=== PATIENT | female | born 1960 | race Caucasian/White ===

== ENCOUNTER 2016-12-01 13:00 | Inpatient (IN) | payer OTHER ==
[~2016-12-01] VITALS: Ht 157.5 cm; Wt 62.1 kg
[~2016-12-01 13:00] MED LIST: ALLOPURINOL100 MG PO; AMLODIPINE10 M1 PO; ANT12.5 PO; APOTEX PO; ASPIR 8181 MG PO; ASPIR-LOW81 M1 PO; ASPIRIN ADULT L81 M5 PO; ATENOLO PO; ATENOLOL PO; ATENOLOL50 MG PO; ATI0.5 PO; ATI1 PO; ATIVAN0.5 M1 PO; BACLOFEN10 MG PO; BISOPROLOL FUMAR5 MG PO; CAR1 PO; CARAFATE1 GM PO; CEPACOL LOZENGE 15 M MM; CLONIDINE HCL0.1 MG PO; COL250 PO; COLACE100 MG PO; DIAZEPAM5 MG PO; DIL2 PO; DIL4 PO; DILAUDID2 MG PO; DILAUDID4 MG PO; DULCOLAX5 MG PO; ELA25 PO; ENALAPRIL MALEA10 MG PO; ENALAPRIL10 M1 PO; ENALAPRIL5 M1 PO; ENALAPRIL5 MG PO; ESG PO; FLUOXETINE HCL20 MG PO; FLUOXETINE20 M2 PO; HEP5I SC; HYDROMORPHONE HC2 MG PO; HYDROMORPHONE1 MG/ML IV; KEPPRA500 MG PO; LAC PO; LAC30L PO; LEVAQUIN250 MG PO; LIO10 PO; MELOXICAM15 M1 PO; MEVACOR40 MG PO; MOBIC PO; MORPHINE SULFAT15 MG PO; MORPHINE SULFAT30 M1 PO; MORPHINE SULFAT30 M2 PO; MS CONTIN15 MG PO; MSC15 PO; NEU300 PO; NIA500 PO; NIACIN500 MG PO; NIASPAN500 MG PO; NORCO PO; PERCOCET1 TA2 PO; PRI20 PO; PRO40 PO; PROMETHAZINE12.5 M4 PO; PROMETHAZINE12.5 M6 PO; RANITIDINE HCL150 MG PO; REG10I IV; REM15 PO; ROB500 PO; ROBAXIN500 MG PO; SOM350 PO; TEN50 PO; TOR30I IV; TRENTAL400 MG PO; TYL325 PO; ULT50 PO; V5 PO; VANCOMYCIN PER PHARMACY MC; VASOTEC20 MG PO; VITAMIN D2 1.25 MG; VITAMIN D2 PO; VOL50 PO; ZANTAC 150150 MG PO; ZES10 PO; ZOC20 PO; ZOFI IV; ZOL50 PO
[2016-12-01 15:48] LABS: BASOPHIL % 0.5 % (0-2); PLATELET COUNT 179 x10^3mcL (130-400)
[2016-12-01 15:52] LABS: RED CELL DISTRIBUTION WIDTH 15.6 % (11.5-14.5)
[2016-12-01 17:02] LABS: ALKALINE PHOSPHATASE 121 U/L (46-116); ALT/SGPT 17 U/L (14-59); AST/SGOT 21 U/L (15-37); BILIRUBIN TOTAL 0.49 mg/dL (0.20-1.00); CALCIUM 10.2 mg/dL (8.5-10.1); CARBON DIOXIDE 25.9 mmol/L (21-32); CHLORIDE SERUM 110 mmol/L (98-107); CREATININE SERUM 0.8 mg/dL (0.6-1.0); GFR1 > 60 mL/min; POTASSIUM SERUM 3.2 mmol/L (3.5-5.1); SODIUM SERUM 145 mmol/L (136-145)
[2016-12-01 17:06] LABS: GLUCOSE SERUM 57 mg/dL (74-106)
[2016-12-01 18:02] LABS: T3 TOTAL 0.98 ng/mL
[2016-12-01 18:06] LABS: FREE T4 0.87 ng/dL (0.76-1.46); FREE THYROXINE INDEX 2.7 ug/dL (1.4-4.5); T4(THYROXINE) 8.1 ug/dL (4.7-13.3)
[2016-12-01 18:18] LABS: MAGNESIUM 2.2 mg/dL (1.8-2.4); PHOSPHOROUS 3.2 mg/dL (2.5-4.9)
[2016-12-01 18:43] VITALS: BP 107/78
[2016-12-01 20:44] VITALS: BP 124/75
[2016-12-02] VITALS (7 sets, daily range): BP systolic 94–133; BP diastolic 55–97
[2016-12-02 08:03] LABS: UA SPECIFIC GRAVITY 1.015 (1.005-1.035); microscopic required? YES; urine erythrocyte NEGATIVE (NEGATIVE)
[2016-12-02 08:38] LABS: AMPHETAMINE QUAL UR NONE DETECTED (NEG <=1000)
[2016-12-02 08:47] LABS: CALCIUM 9.2 mg/dL (8.5-10.1); CARBON DIOXIDE 20.8 mmol/L (21-32); CHLORIDE SERUM 112 mmol/L (98-107); CREATININE SERUM 0.8 mg/dL (0.6-1.0); GFR1 > 60 mL/min; GLUCOSE SERUM 133 mg/dL (74-106); MAGNESIUM 1.8 mg/dL (1.8-2.4); PHOSPHOROUS 2.6 mg/dL (2.5-4.9); POTASSIUM SERUM 3.9 mmol/L (3.5-5.1); SODIUM SERUM 142 mmol/L (136-145)
[2016-12-02 09:31] LABS: BASOPHIL % 0.5 % (0-2); PLATELET COUNT 152 x10^3mcL (130-400)
[2016-12-02 09:34] LABS: RED CELL DISTRIBUTION WIDTH 15.5 % (11.5-14.5)
[2016-12-03 05:40] VITALS: BP 109/67
[2016-12-03 06:29] LABS: PLATELET COUNT 154 x10^3mcL (130-400); RED CELL DISTRIBUTION WIDTH 14.2 % (11.5-14.5)
[2016-12-03 06:35] LABS: BASOPHIL % 2.8 % (0-2)
[2016-12-03 06:42] LABS: CALCIUM 8.7 mg/dL (8.5-10.1); CARBON DIOXIDE 25.7 mmol/L (21-32); CHLORIDE SERUM 112 mmol/L (98-107); GFR1 > 60 mL/min; GLUCOSE SERUM 97 mg/dL (74-106); POTASSIUM SERUM 3.7 mmol/L (3.5-5.1); SODIUM SERUM 142 mmol/L (136-145)
[2016-12-03 09:10] VITALS: BP 115/70
[2016-12-03 13:23] VITALS: BP 115/70
[2016-12-03 14:35] VITALS: BP 86/52
== END 2016-12-03 16:50 | disposition home health service (06) | DRG 203 ==
LOC: ED 13:00 → DU 17:11
PROVIDERS: Emergency Medicine; Family Medicine; ADMIT Family Medicine
DX: M94.0 Chondrocostal junction syndrome [Tietze] (principal); E87.8 Other disorders of electrolyte and fluid balance, not elsewhere classified; D70.2 Other drug-induced agranulocytosis; E83.52 Hypercalcemia; G40.909 Epilepsy, unspecified, not intractable, without status epilepticus; E87.6 Hypokalemia; R51 Headache; G89.29 Other chronic pain; M54.9 Dorsalgia, unspecified; E16.2 Hypoglycemia, unspecified; M24.541 Contracture, right hand; M06.9 Rheumatoid arthritis, unspecified; Z87.442 Personal history of urinary calculi; Z68.25 Body mass index [BMI] 25.0-25.9, adult; T42.6X5A Adverse effect of other antiepileptic and sedative-hypnotic drugs, initial encounter; Y92.018 Other place in single-family (private) house as the place of occurrence of the external cause
CPT/HCPCS: 80307; 82962; 83880; 84439; J1885; J2405; J3010; J3490; J3535; J7030; Q0092

== ENCOUNTER 2017-01-02 15:41 | Emergency (ER) | payer OTHER ==
[~2017-01-02] VITALS: Ht 157.5 cm; Wt 59.0 kg
[2017-01-02 21:50] VITALS: BP 140/98
== END 2017-01-02 21:50 | disposition home or self-care (01) ==
LOC: ED 15:41
DX: S63.591A Other specified sprain of right wrist, initial encounter (principal); S93.401A Sprain of unspecified ligament of right ankle, initial encounter; E78.00 Pure hypercholesterolemia, unspecified; I10 Essential (primary) hypertension; G40.909 Epilepsy, unspecified, not intractable, without status epilepticus; M41.9 Scoliosis, unspecified; W19.XXXA Unspecified fall, initial encounter; Y93.89 Activity, other specified; Y92.89 Other specified places as the place of occurrence of the external cause; Y99.8 Other external cause status
CPT/HCPCS: A4570; J1170; Q0162

== ENCOUNTER 2017-01-19 17:00 | Inpatient (IN) | payer OTHER ==
[~2017-01-19] VITALS: Ht 157.5 cm; Wt 77.1 kg
[2017-01-19 18:08] LABS: BASOPHIL % 0.6 % (0-2); PLATELET COUNT 176 x10^3mcL (130-400); RED CELL DISTRIBUTION WIDTH 14.4 % (11.5-14.5)
[2017-01-19 18:28] LABS: CALCIUM 9.3 mg/dL (8.5-10.1); CARBON DIOXIDE 25.2 mmol/L (21-32); CREATININE SERUM 1.1 mg/dL (0.6-1.0); POTASSIUM SERUM 3.4 mmol/L (3.5-5.1)
[2017-01-19 18:33] LABS: BILIRUBIN TOTAL 0.4 mg/dL (0.20-1.00); TOTAL PROTEIN, SERUM 6.1 g/dL (6.4-8.2)
[2017-01-19 20:30] VITALS: BP 94/58
[2017-01-19 20:36] VITALS: Ht 157.5 cm; Wt 77.1 kg
[2017-01-19 20:47] LABS: PHOSPHOROUS 2.4 mg/dL (2.5-4.9)
[2017-01-19 20:50] LABS: CHOLESTEROL/HDL RATIO 3.4; T3 TOTAL 0.81 ng/mL
[2017-01-19 21:03] LABS: FREE T4 1.04 ng/dL (0.76-1.46); FREE THYROXINE INDEX 2.2 ug/dL (1.4-4.5); T4(THYROXINE) 6.4 ug/dL (4.7-13.3)
[2017-01-20] MEDS ORDERED: PHARMASSURE V500 MCG PO (00:19)
[2017-01-20] MEDS ORDERED: PAROXETINE HCL20 M1 PO (00:22)
[2017-01-20] MEDS ORDERED: TOPIRAMATE100 M1 PO (00:25)
[2017-01-20] MEDS ORDERED: ZOLOFT50 MG PO (00:27)
[2017-01-20] MEDS ORDERED: AMITRIPTYLINE H25 MG PO (00:28)
[2017-01-20] MEDS ORDERED: LOVASTATIN20 MG PO (00:29)
[2017-01-20] MEDS ORDERED: ZANTAC 150150 MG PO (00:29)
[2017-01-20] MEDS ORDERED: CLONIDINE HCL0.1 MG PO (00:33)
[2017-01-20 06:09] LABS: BASOPHIL % 0.4 % (0-2); PLATELET COUNT 152 x10^3mcL (130-400)
[2017-01-20 06:13] LABS: CALCIUM 8.7 mg/dL (8.5-10.1); CARBON DIOXIDE 21.8 mmol/L (21-32); CHLORIDE SERUM 116 mmol/L (98-107); CREATININE SERUM 0.8 mg/dL (0.6-1.0); GFR1 > 60 mL/min; GLUCOSE SERUM 81 mg/dL (74-106); PHOSPHOROUS 2.4 mg/dL (2.5-4.9); POTASSIUM SERUM 3.9 mmol/L (3.5-5.1); SODIUM SERUM 145 mmol/L (136-145)
[2017-01-20 06:14] VITALS: BP 108/72
[2017-01-20 06:43] LABS: RED CELL DISTRIBUTION WIDTH 14.7 % (11.5-14.5)
[2017-01-20 09:54] VITALS: BP 108/75
[2017-01-20 13:14] LABS: microscopic required? YES; urine erythrocyte NEGATIVE (NEGATIVE)
[2017-01-20 14:00] VITALS: BP 134/82
[2017-01-20 14:03] LABS: AMPHETAMINE QUAL UR NONE DETECTED (NEG <=1000)
[2017-01-20 17:48] VITALS: BP 105/68
[2017-01-20 21:28] VITALS: BP 108/66
[2017-01-21 06:01] VITALS: BP 88/60
[2017-01-21 06:39] LABS: CALCIUM 8.5 mg/dL (8.5-10.1); CARBON DIOXIDE 24.4 mmol/L (21-32); CHLORIDE SERUM 111 mmol/L (98-107); CREATININE SERUM 0.7 mg/dL (0.6-1.0); GFR1 > 60 mL/min; GLUCOSE SERUM 113 mg/dL (74-106); MAGNESIUM 1.6 mg/dL (1.8-2.4); PHOSPHOROUS 2.9 mg/dL (2.5-4.9); POTASSIUM SERUM 3.3 mmol/L (3.5-5.1); SODIUM SERUM 142 mmol/L (136-145)
[2017-01-21 07:36] LABS: PLATELET COUNT 161 x10^3mcL (130-400); RED CELL DISTRIBUTION WIDTH 13.8 % (11.5-14.5)
[2017-01-21 07:43] LABS: BASOPHIL % 4.3 % (0-2)
[2017-01-21 10:15] VITALS: BP 108/74
[2017-01-21] MEDS ORDERED: KEFLEX500 M1 PO (11:03)
[2017-01-21] MEDS ORDERED: FLO4 PO (11:16)
[2017-01-21] MEDS ORDERED: LAC PO (12:13)
[2017-01-21 13:59] VITALS: BP 104/67
[2017-01-21 15:28] VITALS: BP 104/67
[2017-01-21 18:06] VITALS: BP 115/77
[2017-01-21 21:41] VITALS: BP 129/87
== END 2017-01-21 22:50 | disposition home or self-care (01) | DRG 48 ==
LOC: ED 17:00 → DU 19:14
PROVIDERS: Emergency Medicine; Family Medicine; ADMIT Family Medicine
DX: G90.9 Disorder of the autonomic nervous system, unspecified (principal); E87.8 Other disorders of electrolyte and fluid balance, not elsewhere classified; E44.0 Moderate protein-calorie malnutrition; K72.90 Hepatic failure, unspecified without coma; M41.87 Other forms of scoliosis, lumbosacral region; E83.42 Hypomagnesemia; E87.6 Hypokalemia; F32.9 Major depressive disorder, single episode, unspecified; R33.9 Retention of urine, unspecified; D64.9 Anemia, unspecified; G89.29 Other chronic pain; G40.909 Epilepsy, unspecified, not intractable, without status epilepticus; M06.9 Rheumatoid arthritis, unspecified; E66.9 Obesity, unspecified; Z68.31 Body mass index [BMI] 31.0-31.9, adult
CPT/HCPCS: 80201; 83880; 84439; 97116-GP; 97530-GP; J0696; J2270; J3475; J7030; J8597; Q0092

== ENCOUNTER 2017-03-26 10:15 | Emergency (ER) | payer OTHER ==
[~2017-03-26 10:15] MED LIST changes: +AMITRIPTYLINE H25 MG PO; +FLO4 PO; +KEFLEX500 M1 PO; +LOVASTATIN20 MG PO; +PAROXETINE HCL20 M1 PO; +PHARMASSURE V500 MCG PO; +TOPIRAMATE100 M1 PO; +ZOLOFT50 MG PO
[2017-03-26 12:26] LABS: UA SPECIFIC GRAVITY <1.005 (1.005-1.035)
[2017-03-26 12:27] LABS: microscopic required? YES
[2017-03-26 12:28] LABS: urine erythrocyte NEGATIVE (NEGATIVE)
[2017-03-26 15:51] VITALS: BP 95/52
== END 2017-03-26 15:51 | disposition home or self-care (01) ==
LOC: ED 10:15
PROVIDERS: Emergency Medicine Emergency Medical Services
DX: R10.9 Unspecified abdominal pain (principal); I10 Essential (primary) hypertension; E78.00 Pure hypercholesterolemia, unspecified; G89.29 Other chronic pain; Z79.899 Other long term (current) drug therapy
CPT/HCPCS: J2405; J7030

== ENCOUNTER 2017-12-07 16:04 | Emergency (ER) | payer OTHER ==
[~2017-12-07] VITALS: Ht 165.1 cm; Wt 68.0 kg
[~2017-12-07 16:04] MED LIST changes: +KLOR-CON M2020 MEQ PO
[2017-12-07 16:24] VITALS: Ht 165.1 cm; Wt 68.0 kg
[2017-12-07 17:19] LABS: BASOPHIL % 1.3 % (0-2); PLATELET COUNT 280 x10^3mcL (130-400)
[2017-12-07 17:21] LABS: CALCIUM 10.6 mg/dL (8.5-10.1); CARBON DIOXIDE 24.3 mmol/L (21-32); CHLORIDE SERUM 107 mmol/L (98-107); CREATININE SERUM 0.7 mg/dL (0.6-1.0); GFR1 > 60 mL/min; GLUCOSE SERUM 99 mg/dL (74-106); POTASSIUM SERUM 3.4 mmol/L (3.5-5.1); SODIUM SERUM 143 mmol/L (136-145)
[2017-12-07 17:25] LABS: ALBUMIN 4.5 g/dL (3.4-5.0); ALKALINE PHOSPHATASE 129 U/L (46-116); ALT/SGPT 20 U/L (14-59); AST/SGOT 22 U/L (15-37); BILIRUBIN TOTAL 1.4 mg/dL (0.20-1.00); LIPASE 181 IU/L (73-393); TRIGLYCERIDES 119 mg/dL (<150)
[2017-12-07 17:26] LABS: CHOLESTEROL 300 mg/dL (<200); HDL CHOLESTEROL 75 mg/dL (40-60)
[2017-12-07 17:38] LABS: FREE T4 1.19 ng/dL (0.76-1.46); FREE THYROXINE INDEX 3.6 ug/dL (1.4-4.5); T4(THYROXINE) 10.5 ug/dL (4.7-13.3)
[2017-12-07 17:41] LABS: T3 TOTAL 0.98 ng/mL
[2017-12-07 18:40] VITALS: BP 142/91
== END 2017-12-07 18:40 | disposition home or self-care (01) ==
LOC: ED 16:04
PROVIDERS: Specialist
DX: M94.0 Chondrocostal junction syndrome [Tietze] (principal); I10 Essential (primary) hypertension; E78.00 Pure hypercholesterolemia, unspecified; G89.29 Other chronic pain; Z88.6 Allergy status to analgesic agent
CPT/HCPCS: 83880; 84439; J2405; J3010; J3490; J7030

== ENCOUNTER 2019-01-04 13:17 | Emergency (ER) | payer OTHER ==
[~2019-01-04] VITALS: Ht 157.5 cm; Wt 68.9 kg
[2019-01-04 13:38] VITALS: Ht 157.5 cm; Wt 68.9 kg
[2019-01-04 16:45] LABS: microscopic required? NO
[2019-01-04 16:45] LABS: BASOPHIL % 0.7 % (0-2); PLATELET COUNT 194 x10^3mcL (130-400); RED CELL DISTRIBUTION WIDTH 14.4 % (11.5-14.5)
[2019-01-04 16:59] LABS: UA SPECIFIC GRAVITY 1.015 (1.005-1.035); urine erythrocyte NEGATIVE (NEGATIVE)
[2019-01-04 17:01] LABS: CALCIUM 9.7 mg/dL (8.5-10.1); CARBON DIOXIDE 32.5 mmol/L (21-32); CHLORIDE SERUM 108 mmol/L (98-107); CREATININE SERUM 0.6 mg/dL (0.6-1.0); GFR1 > 60 mL/min; GLUCOSE SERUM 91 mg/dL (74-106); POTASSIUM SERUM 3.5 mmol/L (3.5-5.1); SODIUM SERUM 145 mmol/L (136-145)
[2019-01-04 17:06] LABS: ALBUMIN 3.4 g/dL (3.4-5.0); ALKALINE PHOSPHATASE 113 U/L (46-116); ALT/SGPT 45 U/L (14-59); AST/SGOT 30 U/L (15-37); BILIRUBIN TOTAL 1.4 mg/dL (0.20-1.00); TOTAL PROTEIN, SERUM 6.9 g/dL (6.4-8.2)
[2019-01-04 18:58] VITALS: BP 138/90
== END 2019-01-04 18:58 | disposition home or self-care (01) ==
LOC: ED 13:17
PROVIDERS: Emergency Medicine
DX: G89.29 Other chronic pain (principal); M54.5 Low back pain; I10 Essential (primary) hypertension; E78.00 Pure hypercholesterolemia, unspecified; F32.9 Major depressive disorder, single episode, unspecified; Z87.442 Personal history of urinary calculi; Z98.890 Other specified postprocedural states; Z88.6 Allergy status to analgesic agent; Z88.8 Allergy status to other drugs, medicaments and biological substances
CPT/HCPCS: J2270; J2405; J7030

== ENCOUNTER 2019-07-01 00:27 | Emergency (ER) | payer OTHER ==
[~2019-07-01] VITALS: Ht 157.5 cm; Wt 71.7 kg
[2019-07-01 00:37] VITALS: Ht 157.5 cm; Wt 71.7 kg
[2019-07-01 03:46] VITALS: BP 123/73
== END 2019-07-01 03:40 | disposition home or self-care (01) ==
LOC: ED 00:27
DX: S80.212A Abrasion, left knee, initial encounter (principal); I10 Essential (primary) hypertension; E78.00 Pure hypercholesterolemia, unspecified; G89.29 Other chronic pain; F32.9 Major depressive disorder, single episode, unspecified; Z98.890 Other specified postprocedural states; Z87.442 Personal history of urinary calculi; Z88.6 Allergy status to analgesic agent; W01.0XXA Fall on same level from slipping, tripping and stumbling without subsequent striking against object, initial encounter; Y93.89 Activity, other specified; Y92.89 Other specified places as the place of occurrence of the external cause; Y99.8 Other external cause status
CPT/HCPCS: J2270; Q0092

== ENCOUNTER 2020-03-25 12:52 | Emergency (ER) | payer OTHER ==
[~2020-03-25] VITALS: Ht 160 cm; Wt 68.0 kg
[2020-03-25 12:58] VITALS: Ht 160 cm; Wt 68.0 kg
[2020-03-25 14:22] LABS: BASOPHIL % 0.4 % (0-2); PLATELET COUNT 197 x10^3mcL (130-400)
[2020-03-25 14:26] LABS: ALBUMIN 3.4 g/dL (3.4-5.0); ALKALINE PHOSPHATASE 94 U/L (46-116); ALT/SGPT 26 U/L (14-59); AST/SGOT 24 U/L (15-37); BILIRUBIN TOTAL 1.1 mg/dL (0.20-1.00); CALCIUM 10.1 mg/dL (8.5-10.1); CARBON DIOXIDE 24.6 mmol/L (21-32); CHLORIDE SERUM 105 mmol/L (98-107); CREATININE SERUM 0.6 mg/dL (0.6-1.0); GFR1 > 60 mL/min; GLUCOSE SERUM 97 mg/dL (74-106); SODIUM SERUM 144 mmol/L (136-145); TOTAL PROTEIN, SERUM 8.1 g/dL (6.4-8.2)
[2020-03-25 14:29] LABS: POTASSIUM SERUM 2.9 mmol/L (3.5-5.1)
[2020-03-25 14:33] LABS: RED CELL DISTRIBUTION WIDTH 14.9 % (11.5-14.5)
[2020-03-25 14:46] LABS: microscopic required? YES; urine erythrocyte 2+ (NEGATIVE)
[2020-03-25 16:55] VITALS: BP 144/97
== END 2020-03-25 16:55 | disposition home or self-care (01) ==
LOC: ED 12:52
PROVIDERS: Emergency Medicine
DX: N12 Tubulo-interstitial nephritis, not specified as acute or chronic (principal); I10 Essential (primary) hypertension; E78.00 Pure hypercholesterolemia, unspecified; G89.29 Other chronic pain; Z87.442 Personal history of urinary calculi; Z88.6 Allergy status to analgesic agent; Z88.8 Allergy status to other drugs, medicaments and biological substances
CPT/HCPCS: J0696; J3010; J7060